=== PATIENT | male | born 1960 | race Caucasian/White ===

== ENCOUNTER 2017-08-27 07:28 | Emergency (ER) | payer OTHER ==
[2017-08-27 07:33] VITALS: BP 169/95
--- NOTE | 2017-08-27 07:58 | ER Document Report ---
ED General - General Chief Complaint: Medication Refill Stated Complaint: MEDICATION REFILL Time Seen by Provider: 08/27/17 07:43 Mode of Arrival: Ambulatory Information source: Patient Notes: Patient is a 56-year-old male who presents to the ER today for refill of his tramadol 50 mg that he takes for pain in his feet, legs, hips and lower back. Patient has not been able to follow-up with his primary care provider. He denies any new pain or injury. - Related Data Allergies/Adverse Reactions: No Known Allergies Allergy (Unverified 08/27/17 07:32) Past Medical History - General Information source: Patient - Social History Smoking Status: Unknown if Ever Smoked Family History: Reviewed & Not Pertinent Review of Systems - Review of Systems Constitutional: No symptoms reported EENT: No symptoms reported Cardiovascular: No symptoms reported Respiratory: No symptoms reported Gastrointestinal: No symptoms reported Genitourinary: No symptoms reported Male Genitourinary: No symptoms reported Musculoskeletal: See HPI Skin: No symptoms reported Hematologic/Lymphatic: No symptoms reported Neurological/Psychological: No symptoms reported Physical Exam - Vital signs Vitals: Temp Pulse Resp BP Pulse Ox 98.8 F 69 18 169/95 H 100 08/27/17 07:32 08/27/17 07:32 08/27/17 07:32 08/27/17 07:32 08/27/17 07:32 - Notes Notes: PHYSICAL EXAMINATION: GENERAL: Well-appearing and in no acute distress. HEAD: Atraumatic, normocephalic. EYES: Pupils equal round and reactive to light, extraocular movements intact, sclera anicteric, conjunctiva are normal. NECK: Normal range of motion, supple without lymphadenopathy LUNGS: CTAB and equal. No wheezes rales or rhonchi. HEART: Regular rate and rhythm without murmurs ABDOMEN: Soft, no tenderness. 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 No cyanosis. NEUROLOGICAL: Cranial nerves grossly intact. Normal sensory/motor exams. PSYCH: Normal mood, normal affect. SKIN: Warm, Dry, normal turgor, no rashes or lesions noted Course - Re-evaluation Re-evalutation: 08/27/17 07:57 08/27/17 08:06 - Vital Signs Vital signs: Temp Pulse Resp BP Pulse Ox 98.8 F 69 18 169/95 H 100 08/27/17 07:32 08/27/17 07:32 08/27/17 07:32 08/27/17 07:32 08/27/17 07:32 Discharge - Discharge Clinical Impression: Chronic pain Qualifiers: Chronic pain type: other chronic pain Qualified Code(s): G89.29 - Other chronic pain Condition: Stable Disposition: HOME, SELF-CARE Additional Instructions: Return immediately for any new or worsening symptoms. Follow up with primary care provider, call tomorrow to make followup appointment. Prescriptions: Tramadol HCl 50 mg PO TID #30 tablet Forms: Return to Work Referrals: GERSON ADLER MD [ACTIVE STAFF] - Follow up as needed
[2017-08-27] MEDS ORDERED: TRAMADOL HCL 50 MG TABLET PO ONE (08:05)
== END 2017-08-27 08:13 | disposition home or self-care (01) ==
LOC: ER 07:28
DX: Z76.0 Encounter for issue of repeat prescription (principal); G89.29 Other chronic pain; M79.606 Pain in leg, unspecified; M25.559 Pain in unspecified hip; M54.5 Low back pain; Q66.9 Congenital deformity of feet, unspecified; M79.673 Pain in unspecified foot; R60.0 Localized edema
CPT/HCPCS: 99281